=== PATIENT | male | born 1970 | race African-American/Black ===

== ENCOUNTER 2018-02-07 00:11 | Emergency (ER) | payer BC ==
[~2018-02-07] VITALS: Ht 177.8 cm; Wt 73.9 kg
[~2018-02-07 00:11] MED LIST: ACULAR5 ML BOTH EYES; CEPHALEXIN500 MG ORAL; CIPROFLOXACIN500 M2 ORAL; SYNTHROID112 MCG ORAL; ZOFRAN ODT4 MG ORAL
[2018-02-07 00:12] VITALS: BP 116/69
[2018-02-07] MEDS ORDERED: Lidocaine 1% 10mg/ml/Epi 0.005mg/ml 30ml vial INJ ONE ×2 (00:30→00:31)
[2018-02-07] MEDS ORDERED: DOXYCYCLINE MO100 MG ORAL (00:55)
[2018-02-07] MEDS ORDERED: IBUPROFEN600 MG ORAL (00:55)
--- NOTE | 2018-02-07 00:55 | Emergency Room Report ---
History of Present Illness General Chief Complaint: Skin Rash/Abscess Source: Patient Present Illness HPI Is a 47-year-old male with no past medical history. He presents with chief complaint of abscess to right buttock area. Onset for about a week now. Has gotten bigger started draining today. He said it was a lot of drainage purulent discharge. But now still size of a golf ball. Tender to palpation. Hard to sit on. No fever chills but no nausea no vomiting. Never had this before. Allergies: Coded Allergies: SULFAMETHOXAZOLE (Unverified Allergy, Unknown, flu symptoms, 03/11/14) TRIMETHOPRIM (Unverified Allergy, Unknown, flu symptoms, 03/11/14) Patient History Past Medical History: see triage record, old chart reviewed Past Surgical History: other Pertinent Family History: none Social History: Denies: smoking Immunizations: other Reviewed Nursing Documentation: PMH: Agreed; PSxH: Agreed Nursing Documentation-PMH Hx Cardiac Problems: No - HYPOTHYROID Review of Systems Eye: Denies: eye pain, blurred vision ENT: Denies: ear pain, nose congestion, throat swelling Respiratory: Denies: cough, shortness of breath Cardiovascular: Denies: chest pain, palpitations Gastrointestinal: Denies: abdominal pain, diarrhea, nausea, vomiting Musculoskeletal: Denies: back pain, joint pain Skin: Denies: rash Neurological: Denies: headache, numbness Endocrine: Denies: increased thirst, increased urine Hematologic/Lymphatic: Denies: easy bruising All Other Systems: negative except mentioned in HPI Physical Exam Vital Signs Date Time Temp Pulse Resp B/P (MAP) Pulse Ox O2 Delivery O2 Flow Rate FiO2 02/07/18 00:12 98.1 115 16 116/69 95 Room Air 98.1 vitals normal Sp02 EP Interpretation: reviewed, normal General Appearance: well appearing, no apparent distress, alert Head: normocephalic, atraumatic Eyes: bilateral eye PERRL, bilateral eye EOMI ENT: hearing grossly normal, normal pharynx Neck: full range of motion, supple, no meningismus Respiratory: chest non-tender, lungs clear, normal breath sounds Cardiovascular #1: regular rate, rhythm, no murmur Gastrointestinal: normal bowel sounds, non tender, no mass, no organomegaly, no bruit, non-distended Rectal: other - Right buttock: There is an indurated area of about 4 cm. Tender to palpation. Musculoskeletal: back normal, gait/station normal, normal range of motion Neurologic: alert, oriented x3 Psychiatric: mood/affect normal Skin: warm/dry Procedures Incision and Drainage Incision and Drainage : Consent: Verbal Site: Right buttock Blade Size: 11 I & D Procedure: betadine prep, gauze wick placed Wound Location: other - Buttock Anesthesia: Lidocaine w/ Epi Volume Anesthetic (ccs): 7 Patient Tolerated: Well Complications: None Progress Area cleaned with chlorhexidine. Local anesthetic 1% lidocaine without epinephrine. I made a 2 cm incision with 11 blade scalpel. Loculated area broken up with Nuvia forcep. There is only scant amount of pus expressed. Wound irrigated and then packed with iodoform gauze. Patient tolerated procedure without a problem. Medical Decision Making Diagnostic Impression: Primary Impression: Abscess ER Course Patient presents with an abscess of his buttock. Most of his arty drained. Patient I&D and packed. No evidence of deep infection. No evidence of necrotizing fasciitis. We'll discharge home. Last Vital Signs Date Time Temp Pulse Resp B/P (MAP) Pulse Ox O2 Delivery O2 Flow Rate FiO2 02/07/18 00:12 98.1 115 16 116/69 95 Room Air 98.1 Status: improved Disposition: HOME, SELF-CARE Condition: Stable Scripts Ibuprofen* (MOTRIN*) 600 Mg Tablet 600 MG ORAL THREE TIMES A DAY, #30 TAB 0 Refills Prov: JOSY MOELLER M.D. 02/07/18 Doxycycline Monohydrate* (DOXYCYCLINE MONOHYDRATE*) 100 Mg Capsule 100 MG ORAL Q12H, #14 CAP 0 Refills Prov: JOSY MOELLER M.D. 02/07/18 Referrals: NOT CHOSEN IPA/,REFERRING (PCP) Patient Instructions: Abscess Additional Instructions: Keep wound clean. Follow-up in 2 days for packing removal and wound check. Return if symptom worsen. JOSY MOELLER M.D. Feb 07, 2018 00:55
[2018-02-07 01:01] VITALS: BP 116/69
== END 2018-02-07 01:00 | disposition home or self-care (01) ==
LOC: EMR 00:41
DX: L02.31 Cutaneous abscess of buttock (principal); Z88.2 Allergy status to sulfonamides; E03.9 Hypothyroidism, unspecified
CPT/HCPCS: 10060; 99284